=== PATIENT | female | born 1990 | race Caucasian/White ===

== ENCOUNTER 2019-03-06 10:32 | Emergency (ER) | payer OTHER ==
[~2019-03-06] VITALS: Ht 170.2 cm; Wt 109.1 kg
[2019-03-06] MEDS ORDERED: AUGMENTIN 875-1 EAC1 PO (12:05)
[2019-03-06 12:18] VITALS: BP 104/81
== END 2019-03-06 12:18 | disposition home or self-care (01) ==
LOC: ED 10:32
DX: J18.9 Pneumonia, unspecified organism (principal)
CPT/HCPCS: Q9967

== ENCOUNTER → 2019-03-06 | Outpatient (CLI) | payer OTHER ==
[~2019-03-06] MED LIST: AUGMENTIN 875-1 EAC1 PO
[2019-03-06 08:14] LABS: EOS # 0.2 (0.04-0.40); EOS % 2.6 % (1.0-5.0); HEMATOCRIT 38.5 % (37.0-47.0); HEMOGLOBIN 12.3 g/dL (12.5-16.0); LYMPH# 2.1 (1.50-4.00); MEAN CELL VOLUME 87 fl (78-100); MEAN CORPUSCULAR HEMOGLOBIN 28 pg (27-31); MEAN CORPUSCULAR HGB CONC 32 g/dL (33-37); MONO # 0.5 (0.20-0.80); NEU # 3.5 (1.40-6.50); PLATELET COUNT 271 K/mm3 (130-400); RED BLOOD COUNT 4.44 M/mm3 (4.10-5.30); RED CELL DISTRIBUTION WIDTH 14.1 % (11.5-14.5); WHITE BLOOD COUNT 6.3 K/mm3 (4.8-10.8)
[2019-03-06 08:39] LABS: ALBUMIN 4.2 g/dL (3.5-5.0); POTASSIUM 4.5 mmol/L (3.5-5.1)
[2019-03-06 08:40] LABS: CALCIUM 9.1 mg/dL (8.3-10.5)
[2019-03-06 08:42] LABS: TOTAL PROTEIN 7.7 g/dL (6.4-8.3)
[2019-03-06 08:43] LABS: TOTAL BILIRUBIN 0.3 mg/dL (0.2-1.2)
[2019-03-06 09:02] LABS: D-DIMER 0.82 mg/L FEU (0.15-0.50)
== END ==
LOC: LAB 08:00
PROVIDERS: Nurse Practitioner
DX: R04.2 Hemoptysis (principal)

== ENCOUNTER 2019-06-08 14:49 | Emergency (ER) | payer OTHER ==
[2019-06-08] MEDS ORDERED: DOXYCYCLINE MO100 M3 PO (14:53)
[2019-06-08 14:55] VITALS: BP 124/85
[2019-06-08 15:13] LABS: EOS # 0.1 (0.04-0.40); EOS % 1.2 % (1.0-5.0); HEMATOCRIT 38.8 % (37.0-47.0); HEMOGLOBIN 12.4 g/dL (12.5-16.0); MEAN CELL VOLUME 86 fl (78-100); MEAN CORPUSCULAR HEMOGLOBIN 27 pg (27-31); MEAN CORPUSCULAR HGB CONC 32 g/dL (33-37); MEAN PLATELET VOLUME 10.5 fl (7.4-10.4); MONO # 0.5 (0.20-0.80); NEU # 3.9 (1.40-6.50); PLATELET COUNT 285 K/mm3 (130-400); RED BLOOD COUNT 4.52 M/mm3 (4.10-5.30); RED CELL DISTRIBUTION WIDTH 13.7 % (11.5-14.5); WHITE BLOOD COUNT 6.4 K/mm3 (4.8-10.8)
[2019-06-08] MEDS ORDERED: GOOD NEIGHBOR P20 M1 PO (16:18)
== END 2019-06-08 16:28 | disposition home or self-care (01) ==
LOC: ED 14:49
PROVIDERS: Family Medicine
DX: R05 Cough (principal); K21.9 Gastro-esophageal reflux disease without esophagitis

== ENCOUNTER → 2024-04-10 | Outpatient (CLI) | payer OTHER ==
[~2024-04-10] MED LIST changes: +DOXYCYCLINE MO100 M3 PO; +GOOD NEIGHBOR P20 M1 PO
== END ==
LOC: RAD 17:00
DX: R05.9 Cough, unspecified (principal)